=== PATIENT | male | born 1965 | race African-American/Black ===

== ENCOUNTER 2017-10-09 12:51 | Inpatient (IN) | payer OTHER ==
[2017-10-09 13:52] VITALS: BMI 34.1
--- NOTE | 2017-10-09 15:18 | HP ---
COWS - Scale Resting Pulse: 0= [place] 80 or Below Sweatin= Chills/Flushing Restless Observation: 1= Difficult to Sit Still Pupil Size: 1= Pupils >than Normal Bone or Joint Aches: 2= Severe Diffuse Aches Runny Nose/ Eye Tearin= Nasal Congestion GI Upset > 30mins: 1= Stomach Cramp Tremor Observation: 1= Tremor [place], Not Seen Yawning Observation: 0= None Anxiety or Irritability: 1=Feels Anxious/Irritable Goose Flesh Skin: 0=Smooth Skin COWS Score: 9 CIWA Score - CIWA Score Nausea/Vomitin Muscle Tremors: 2 Anxiety: 2 Agitation: 2 Paroxysmal Sweats: 2 Orientation: 0-Oriented Tacttile Disturbances: 1-Very Mild Itch/Numbness Auditory Disturbances: 0-None Visual Disturbances: 0-None Headache: 0-None Present CIWA-Ar Total Score: 11 Admission ROS BHS - HPI Chief Complaint: I need to clean up and get on track - I also realize i need rehab. Allergies/Adverse Reactions: Allergies Allergy/AdvReac Type Severity Reaction Status Date / Time No Known Allergies Allergy Verified 10/09/17 15:43 History of Present Illness: 52 y/o m pt with h/o of polysubstance dep, heroin , crack and alcohol . The pt has h/o multiple tx programs , detoxes attended. He had 4 weeks of drug free time then he relapsed last saturday10/04/17. ow pt seeking detox and rehab . - Ebola screening Have you traveled outside of the country in the last 21 days: No Have you had contact with anyone from an Ebola affected area: No Have you been sick,other than usual withdrawal symptoms: No Do you have a fever: No - Review of Systems Constitutional: Malaise, Weakness EENT: reports: Other (wears corrective lenses -has them on) Respiratory: reports: No Symptoms reported Cardiac: reports: No Symptoms Reported GI: reports: Nausea, Abdominal cramping : reports: No Symptoms Reported Musculoskeletal: reports: Back Pain, Joint Pain, Muscle Pain Integumentary: reports: No Symptoms Reported Neuro: reports: Weakness Endocrine: reports: No Symptoms Reported Hematology: reports: No Symptoms Reported Psychiatric: reports: No Sypmtoms Reported Other Systems: Reviewed and Negative Patient History - Patient Medical History Hx Anemia: No Hx Asthma: No Hx Chronic Obstructive Pulmonary Disease (COPD): No Hx Cancer: No Hx Cardiac Disorders: No Hx Congestive Heart Failure: No Hx Hypertension: No Hx Hypercholesterolemia: Yes Hx Pacemaker: No HX Cerebrovascular Accident: Yes Hx Seizures: No Hx Dementia: No Hx Diabetes: No Hx Gastrointestinal Disorders: No Hx Liver Disease: Yes Hx Genitourinary Disorders: No Hx Sexually Transmitted Disorders: No Hx Renal Disease (ESRD): No Hx Thyroid Disease: No Hx Human Immunodeficiency Virus (HIV): Yes Hx Hepatitis C: No Hx Depression: No Hx Suicide Attempt: No Hx Bipolar Disorder: No Hx Schizophrenia: No - Patient Surgical History Past Surgical History: No - PPD History Previous Implant?: Yes Documented Results: Negative w/o proof PPD to be Administered?: Yes - Reproductive History Patient is a Female of Child Bearing Age (11 -55 yrs old): No - Smoking Cessation Smoking history: Current every day smoker Have you smoked in the past 12 months: Yes Aproximately how many cigarettes per day: 10 Cigars Per Day: 0 Hx Chewing Tobacco Use: No Initiated information on smoking cessation: Yes 'Breaking Loose' booklet given: 10/09/17 - Substance & Tx. History Hx Alcohol Use: Yes Hx Substance Use: Yes Substance Use Type: Alcohol, Cocaine, Heroin Hx Substance Use Treatment: Yes ([facility], [facility] -detoxes) - Substances Abused Alcohol Route: Oral Frequency: Daily Amount used: beer 2- 12oz cans Age of first use: 15 Date of Last Use: 10/08/17 Heroin Route: Inhalation Frequency: Daily Amount used: 4 bags Age of first use: 29 Date of Last Use: 10/09/17 Crack Route: Smoking Frequency: Daily Amount used: $125./day Age of first use: 23 Date of Last Use: 10/09/17 Family Disease History - Family Disease History Family Disease History: Other: Mother (arthritis) Admission Physical Exam BHS - Vital Signs Vital Signs: Vital Signs - 24 hr 10/09/17 13:50 Temperature 98.1 F Pulse Rate 77 Respiratory 16 Rate Blood Pressure 114/70 Pt aox3 , in nad but uneasy , ambulating and cooperative with exam. - Physical General Appearance: Yes: Sweating (moist), Anxious HEENTM: Yes: EOMI, Hearing grossly Normal, Normocephalic, Normal Voice, WENDI Respiratory: Yes: Chest Non-Tender, Lungs Clear, Normal Breath Sounds, No Respiratory Distress Neck: Yes: No masses,lesions,Nodules, Supple, Trachea in good position Breast: Yes: Within Normal Limits Cardiology: Yes: Regular Rhythm, Regular Rate, S1, S2 Abdominal: Yes: Non Tender, Soft, Protuberent, Other (no surgical scars) Genitourinary: Yes: Within Normal Limits Back: Yes: Decreased Range of Motion Musculoskeletal: Yes: Back pain, Muscle weakness Extremities: Yes: Tremors (mild) Neurological: Yes: 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 intact, Fully Oriented, Alert, Motor Strength 5/5, Normal Response, Finger to Nose Integumentary: Yes: Moist Lymphatic: Yes: Within Normal Limits - Diagnostic (1) Chronic alcoholism Current Visit: Yes Status: Acute (2) Cocaine abuse Current Visit: Yes Status: Acute (3) Opioid dependence with current use Current Visit: Yes Status: Acute (4) Cannabis abuse Current Visit: Yes Status: Acute Cleared for Admission [facility] - Detox or Rehab [facility] Level of Care: Medically Managed Detox Regimen/Protocol: Methadone/Valium [facility] Breath Alcohol Content Breath Alcohol Content: 0 Urine Drug Screen - Results Drug Screen Negative: No Urine Drug Screen Results: THC-Marijuana, OCTAVIA-Cocaine, OPI-Opiates
[2017-10-09] MEDS ORDERED: P-EPHED 60MG/TRIPROLIDI 2.5MG TABLET PO PRN (15:48)
[2017-10-09] MEDS ORDERED: IBUPROFEN 400 MG TABLET (FP) PO PRN (15:48)
[2017-10-09] MEDS ORDERED: MAGNESIUM CITRATE 300 ML BOTTLE PO PRN (15:48)
[2017-10-09] MEDS ORDERED: LOPERAMIDE HCL 2 MG CAPSULE PO PRN (15:48)
[2017-10-09] MEDS ORDERED: MENTHOL/PHENOL 1 EACH UD MM PRN (15:48)
[2017-10-09] MEDS ORDERED: ACETAMINOPHEN 325 MG TABLET (FP) PO PRN (15:48)
[2017-10-09] MEDS ORDERED: guaiFENesin/D-METHORPHAN HB 10 ML UNIT-DOSE CUPS PO PRN (15:48)
[2017-10-09] MEDS ORDERED: hydrOXYzine PAMOATE 25 MG CAPSULE (FP) PO PRN (15:48)
[2017-10-09] MEDS ORDERED: MAGNESIUM HYDROX 2400MG/30ML ORAL SUSPENSION 30 ML CUP PO PRN (15:48)
[2017-10-09] MEDS ORDERED: diazePAM 5 MG TABLET PO PRN (15:48)
[2017-10-09] MEDS ORDERED: NICOTINE POLACRILEX 4 MG GUM BC PRN (15:48)
[2017-10-09] MEDS ORDERED: MAG HYDROX/AL HYDROX/SIMETH 30 ML UNIT-DOSE CUP PO PRN (15:48)
[2017-10-09] MEDS ORDERED: diazePAM 5 MG TABLET PO ONE (17:30)
[2017-10-09] MEDS ORDERED: METHADONE HCL 10 MG TABLET (FOR DETOX USE ONLY) PO ONE ×2 (17:30→23:00)
[2017-10-09] MEDS: THIAMINE HCL 100 MG TABLET (FP) PO SCH (22:16)
[2017-10-09] MEDS: diazePAM 5 MG TABLET PO SCH (22:17)
[2017-10-09 23:31] LABS: URINE APPEARANCE TURBID; URINE BILIRUBIN NEGATIVE (<2.0 mg/dL); URINE COLOR YELLOW; URINE GLUCOSE (UA) NEGATIVE (NEGATIVE); URINE KETONE TRACE (NEGATIVE); URINE LEUK ESTERASE NEGATIVE (NEGATIVE); URINE NITRITE NEGATIVE (NEGATIVE); URINE PROTEIN NEGATIVE (NEGATIVE); URINE UROBILINOGEN 4.0 E.U/dl mg/dL (0.2-1.0)
[2017-10-10] MEDS: diazePAM 5 MG TABLET PO SCH ×3 (05:30→22:28)
[2017-10-10 09:52] LABS: HEMOGLOBIN 13.4 GM/dL (11.7-16.9); RDW 14.3 % (11.9-15.9)
[2017-10-10 09:55] LABS: HEMATOCRIT 39.8 % (35.4-49); MCHC 33.8 g/dl (32.0-35.9); MEAN CELL VOLUME 91.7 fl (80-96); MEAN PLT VOLUME 8.6 fl (7.5-11.1); PLATELET COUNT 172 K/MM3 (134-434); RBC 4.34 M/mm3 (4.00-5.60)
[2017-10-10] MEDS ORDERED: METHADONE HCL 10 MG TABLET (FOR DETOX USE ONLY) PO SCH (10:00)
--- NOTE | 2017-10-10 10:02 | PN ---
S CIWA - CIWA Score Nausea/Vomitin-No Nausea/No Vomiting Muscle Tremors: 4-Moderate,w/Arms Extend Anxiety: 4-Mod. Anxious/Guarded Agitation: 4-Moderately Restless Paroxysmal Sweats: 1-Minimal Palms Moist Orientation: 0-Oriented Tacttile Disturbances: 0-None Auditory Disturbances: 0-None Visual Disturbances: 0-None Headache: 0-None Present CIWA-Ar Total Score: 13 BHS COWS - Scale Resting Pulse: 0= [place] 80 or Below Sweatin= Chills/Flushing Restless Observation: 3= Extraneous Movement Pupil Size: 2= Moderately Dilated Bone or Joint Aches: 4=Acute Joint/Muscle Pain Runny Nose/ Eye Tearin= None GI Upset > 30mins: 0= None Tremor Observation of Outstretched Hands: 1= Tremor [place], Not Seen Yawning Observation: 1= 1-2x During Session Anxiety or Irritability: 2=Irritable/Anxious Goose Flesh Skin: 0=Smooth Skin COWS Score: 14 S Progress Note (SOAP) Subjective: ANXIETY,SWEATS,BODY ACHES. Objective: 10/10/17 10:01 Vital Signs 10/10/17 10/10/17 10/10/17 03:30 06:19 06:30 Temperature 98.2 F Pulse Rate 75 Respiratory 20 18 20 Rate Blood Pressure 101/65 Laboratory Tests 10/09/17 10/10/17 23:15 07:00 WBC 6.0 RBC 4.34 Hgb 13.4 Hct 39.8 MCV 91.7 MCH 31.0 MCHC 33.8 RDW 14.3 Plt Count 172 MPV 8.6 Urine Color Yellow Urine Appearance Turbid Urine pH 5.0 Ur Specific [place] 1.029 Urine Protein Negative Urine Glucose (UA) Negative Urine Ketones Trace H Urine Blood Negative Urine Nitrite Negative Urine Bilirubin Negative Urine Urobilinogen 4.0 e.u/dl Ur Leukocyte Esterase Negative OTHER LABS PENDING Assessment: 10/10/17 10:01 WITHDRAWAL SX Plan: CONTINUE DETOX MOTRIN PRN INCREASE PO FLUIDS
[2017-10-10] MEDS: PRENATAL VITAMINS W/ FOLIC ACID TABLET (FP) PO SCH (10:08)
[2017-10-10] MEDS: NICOTINE 21 MG/24 HOURS TOPICAL PATCH TD SCH (10:08)
[2017-10-10 10:42] LABS: ALBUMIN 3.2 g/dl (3.4-5.0); ANION GAP 5 (8-16); BILIRUBIN,TOTAL 0.2 mg/dL (0.2-1.0); BLOOD UREA NITROGEN 13 mg/dL (7-18); CALCIUM 8.6 mg/dL (8.5-10.1); CHLORIDE 109 mmol/L (98-107); CO2 32 mmol/L (21-32); CREATININE 1.2 mg/dL (0.7-1.3); GLUCOSE,RANDOM 84 mg/dL (74-106); POTASSIUM 4.9 mmol/L (3.5-5.1); SGOT/AST 13 U/L (15-37); SGPT/ALT 15 U/L (12-78); SODIUM 146 mmol/L (136-145); TOT PROT 6.1 g/dl (6.4-8.2)
[2017-10-10 10:43] LABS: ALK PHOS 52 U/L (45-117)
--- NOTE | 2017-10-10 12:01 | EKG ---
Test Reason : Blood Pressure : / mmHG Vent. Rate : 064 BPM Atrial Rate : 064 BPM P-R Int : 184 ms QRS Dur : 104 ms QT Int : 400 ms P-R-T Axes : 057 018 025 degrees QTc Int : 412 ms NORMAL SINUS RHYTHM LOW VOLTAGE QRS BORDERLINE ECG NO PREVIOUS ECGS AVAILABLE Confirmed by ERIC LAUREN MD ([id number]) on 10/10/2017 12:01:04 PM Referred By: Confirmed By:ERIC LAUREN MD
[2017-10-10] MEDS: THIAMINE HCL 100 MG TABLET (FP) PO SCH (22:28)
[2017-10-11] MEDS: METHADONE HCL 5 MG TABLET (FOR DETOX USE ONLY) PO SCH (10:07)
[2017-10-11] MEDS: diazePAM 5 MG TABLET PO SCH ×2 (10:07→22:22)
[2017-10-11] MEDS: PRENATAL VITAMINS W/ FOLIC ACID TABLET (FP) PO SCH (10:07)
[2017-10-11] MEDS: NICOTINE 21 MG/24 HOURS TOPICAL PATCH TD SCH (10:08)
--- NOTE | 2017-10-11 17:00 | PN ---
[facility] CIWA - CIWA Score Nausea/Vomitin-No Nausea/No Vomiting Muscle Tremors: 3 Anxiety: 4-Mod. Anxious/Guarded Agitation: 3 Paroxysmal Sweats: 3 Orientation: 0-Oriented Tacttile Disturbances: 2-Mild Itch/Numbness/Burn Auditory Disturbances: 1-Very Mild Visual Disturbances: 0-None Headache: 0-None Present CIWA-Ar Total Score: 16 S COWS - Scale Resting Pulse: 0= [place] 80 or Below Sweatin= Chills/Flushing Restless Observation: 1= Difficult to Sit Still Pupil Size: 0= Normal to Room Light Bone or Joint Aches: 0= None Runny Nose/ Eye Tearin= Runny Nose/Eyes GI Upset > 30mins: 0= None Tremor Observation of Outstretched Hands: 2= Slight Tremor Visible Yawning Observation: 1= 1-2x During Session Anxiety or Irritability: 2=Irritable/Anxious Goose Flesh Skin: 3=Piloerection COWS Score: 12 S Progress Note (SOAP) Subjective: Tremors, Sweating, Anxious, Constipation. Objective: PATIENT A & O X 3, OBSERVED AMBULATING ON UNIT. NO ACUTE DISTRESS. 10/11/17 17:00 Vital Signs Temperature 97.5 F L 10/11/17 14:05 Pulse Rate 75 10/11/17 14:05 Respiratory Rate 18 10/11/17 14:05 Blood Pressure 103/64 10/11/17 14:05 O2 Sat by Pulse Oximetry (%) Laboratory Tests 10/09/17 10/10/17 10/10/17 23:15 07:00 07:00 WBC 6.0 RBC 4.34 Hgb 13.4 Hct 39.8 MCV 91.7 MCH 31.0 MCHC 33.8 RDW 14.3 Plt Count 172 MPV 8.6 Sodium 146 H Potassium 4.9 Chloride 109 H Carbon Dioxide 32 Anion Gap 5 L BUN 13 Creatinine 1.2 Creat Clearance w eGFR > 60 Random Glucose 84 Calcium 8.6 Total Bilirubin 0.2 AST 13 L ALT 15 Alkaline Phosphatase 52 Total Protein 6.1 L Albumin 3.2 L Urine Color Yellow Urine Appearance Turbid Urine pH 5.0 Ur Specific [place] 1.029 Urine Protein Negative Urine Glucose (UA) Negative Urine Ketones Trace H Urine Blood Negative Urine Nitrite Negative Urine Bilirubin Negative Urine Urobilinogen 4.0 e.u/dl Ur Leukocyte Esterase Negative RPR Titer 10/10/17 07:00 WBC RBC Hgb Hct MCV MCH MCHC RDW Plt Count MPV Sodium Potassium Chloride Carbon Dioxide Anion Gap BUN Creatinine Creat Clearance w eGFR Random Glucose Calcium Total Bilirubin AST ALT Alkaline Phosphatase Total Protein Albumin Urine Color Urine Appearance Urine pH Ur Specific [place] Urine Protein Urine Glucose (UA) Urine Ketones Urine Blood Urine Nitrite Urine Bilirubin Urine Urobilinogen Ur Leukocyte Esterase RPR Titer Nonreactive LABS NOTED. Assessment: 10/11/17 17:01 WITHDRAWAL SYMPTOMS. Plan: CONTINUE DETOX. INCREASE DAILY PO FLUID INTAKE. PRN MOM FOR CONSTIPATION.
[2017-10-11] MEDS: MELATONIN 5 MG TABLETS PO PRN (22:22)
[2017-10-11] MEDS: THIAMINE HCL 100 MG TABLET (FP) PO SCH (22:22)
[2017-10-12] MEDS: PRENATAL VITAMINS W/ FOLIC ACID TABLET (FP) PO SCH (10:10)
[2017-10-12] MEDS: NICOTINE 21 MG/24 HOURS TOPICAL PATCH TD SCH (10:10)
[2017-10-12] MEDS: METHADONE HCL 5 MG TABLET (FOR DETOX USE ONLY) PO SCH (10:10)
[2017-10-12] MEDS: diazePAM 5 MG TABLET PO SCH ×2 (10:10→22:07)
--- NOTE | 2017-10-12 16:33 | PN ---
BHS Progress Note (SOAP) Subjective: Fatigue, H/A, Constipation. Objective: PATIENT A & O X 3, OBSERVED AMBULATING ON UNIT. NO ACUTE DISTRESS. 10/12/17 16:32 Vital Signs Temperature 98.5 F 10/12/17 14:20 Pulse Rate 70 10/12/17 14:20 Respiratory Rate 18 10/12/17 14:20 Blood Pressure 107/67 10/12/17 14:20 O2 Sat by Pulse Oximetry (%) Laboratory Tests 10/09/17 10/10/17 10/10/17 23:15 07:00 07:00 WBC 6.0 RBC 4.34 Hgb 13.4 Hct 39.8 MCV 91.7 MCH 31.0 MCHC 33.8 RDW 14.3 Plt Count 172 MPV 8.6 Sodium 146 H Potassium 4.9 Chloride 109 H Carbon Dioxide 32 Anion Gap 5 L BUN 13 Creatinine 1.2 Creat Clearance w eGFR > 60 Random Glucose 84 Calcium 8.6 Total Bilirubin 0.2 AST 13 L ALT 15 Alkaline Phosphatase 52 Total Protein 6.1 L Albumin 3.2 L Urine Color Yellow Urine Appearance Turbid Urine pH 5.0 Ur Specific [place] 1.029 Urine Protein Negative Urine Glucose (UA) Negative Urine Ketones Trace H Urine Blood Negative Urine Nitrite Negative Urine Bilirubin Negative Urine Urobilinogen 4.0 e.u/dl Ur Leukocyte Esterase Negative RPR Titer 10/10/17 07:00 WBC RBC Hgb Hct MCV MCH MCHC RDW Plt Count MPV Sodium Potassium Chloride Carbon Dioxide Anion Gap BUN Creatinine Creat Clearance w eGFR Random Glucose Calcium Total Bilirubin AST ALT Alkaline Phosphatase Total Protein Albumin Urine Color Urine Appearance Urine pH Ur Specific [place] Urine Protein Urine Glucose (UA) Urine Ketones Urine Blood Urine Nitrite Urine Bilirubin Urine Urobilinogen Ur Leukocyte Esterase RPR Titer Nonreactive LABS NOTED. Assessment: 10/12/17 16:32 WITHDRAWAL SYMPTOMS. Plan: CONTINUE DETOX.
[2017-10-12] MEDS: THIAMINE HCL 100 MG TABLET (FP) PO SCH (22:07)
[2017-10-12] MEDS: MELATONIN 5 MG TABLETS PO PRN (22:07)
[2017-10-13] MEDS ORDERED: METHADONE HCL 10 MG TABLET (FOR DETOX USE ONLY) PO SCH (10:00)
[2017-10-13] MEDS ORDERED: diazePAM 5 MG TABLET PO SCH (10:00)
[2017-10-13] MEDS: PRENATAL VITAMINS W/ FOLIC ACID TABLET (FP) PO SCH (10:08)
[2017-10-13] MEDS: NICOTINE 21 MG/24 HOURS TOPICAL PATCH TD SCH (10:09)
--- NOTE | 2017-10-13 12:37 | PN ---
BHS Progress Note (SOAP) Subjective: ALERT O X 3. REPORTS DETOX PROCEEDING WELL. Objective: 10/13/17 12:36 Vital Signs 10/13/17 10/13/17 06:13 09:30 Temperature 98.4 F 98.1 F Pulse Rate 70 68 Respiratory 18 18 Rate Blood Pressure 105/65 101/66 Laboratory Tests 10/09/17 10/10/17 10/10/17 23:15 07:00 07:00 WBC 6.0 RBC 4.34 Hgb 13.4 Hct 39.8 MCV 91.7 MCH 31.0 MCHC 33.8 RDW 14.3 Plt Count 172 MPV 8.6 Sodium 146 H Potassium 4.9 Chloride 109 H Carbon Dioxide 32 Anion Gap 5 L BUN 13 Creatinine 1.2 Creat Clearance w eGFR > 60 Random Glucose 84 Calcium 8.6 Total Bilirubin 0.2 AST 13 L ALT 15 Alkaline Phosphatase 52 Total Protein 6.1 L Albumin 3.2 L Urine Color Yellow Urine Appearance Turbid Urine pH 5.0 Ur Specific [place] 1.029 Urine Protein Negative Urine Glucose (UA) Negative Urine Ketones Trace H Urine Blood Negative Urine Nitrite Negative Urine Bilirubin Negative Urine Urobilinogen 4.0 e.u/dl Ur Leukocyte Esterase Negative RPR Titer 10/10/17 07:00 WBC RBC Hgb Hct MCV MCH MCHC RDW Plt Count MPV Sodium Potassium Chloride Carbon Dioxide Anion Gap BUN Creatinine Creat Clearance w eGFR Random Glucose Calcium Total Bilirubin AST ALT Alkaline Phosphatase Total Protein Albumin Urine Color Urine Appearance Urine pH Ur Specific [place] Urine Protein Urine Glucose (UA) Urine Ketones Urine Blood Urine Nitrite Urine Bilirubin Urine Urobilinogen Ur Leukocyte Esterase RPR Titer Nonreactive Assessment: 10/13/17 12:36 WITHDRAWAL SX Plan: CONTINUE DETOX
[2017-10-13] MEDS: THIAMINE HCL 100 MG TABLET (FP) PO SCH (22:12)
[2017-10-13] MEDS: MELATONIN 5 MG TABLETS PO PRN (22:13)
[2017-10-14] MEDS ORDERED: METHADONE HCL 5 MG TABLET (FOR DETOX USE ONLY) PO SCH (06:00)
[2017-10-14] MEDS: PRENATAL VITAMINS W/ FOLIC ACID TABLET (FP) PO SCH (10:08)
[2017-10-14] MEDS: NICOTINE 21 MG/24 HOURS TOPICAL PATCH TD SCH (10:08)
--- NOTE | 2017-10-14 11:13 | PN ---
S Progress Note (SOAP) Subjective: Denies any complaints Objective: 10/14/17 11:12 A & O x 3 no acute distress Vital Signs Temperature 98.5 F 10/14/17 09:19 Pulse Rate 72 10/14/17 09:19 Respiratory Rate 16 10/14/17 09:19 Blood Pressure 118/72 10/14/17 09:19 O2 Sat by Pulse Oximetry (%) Assessment: 10/14/17 11:12 Detox successfully completed Plan: For discharge
--- NOTE | 2017-10-14 11:19 | DS ---
[facility] Detox Discharge Summary Admission Date: 10/09/17 Discharge Date: 10/14/17 - History Additional Comments: Pt will continue aftercare at [facility] rehab Pertinent Past History: N/a - Physical Exam Results Vital Signs: Vital Signs Temperature 98.5 F 10/14/17 09:19 Pulse Rate 72 10/14/17 09:19 Respiratory Rate 16 10/14/17 09:19 Blood Pressure 118/72 10/14/17 09:19 O2 Sat by Pulse Oximetry (%) Pertinent Admission Physical Exam Findings: withdrawal sx - Treatment Hospital Course: Detox Protocol Followed, Detoxed Safely, Responded well, Discharged Condition Good, Rehab Referral Accepted Patient has Accepted a Rehab Referral to: [facility] rehab - Medication Discharge Medications: Ambulatory Orders NK [No Known Home Medication] 10/09/17 - Diagnosis (1) Alcohol dependence with uncomplicated withdrawal Current Visit: Yes Status: Acute (2) Cannabis abuse Current Visit: Yes Status: Chronic (3) Cocaine abuse Current Visit: Yes Status: Acute (4) Cocaine dependence, uncomplicated Current Visit: Yes Status: Acute (5) Opioid dependence with withdrawal Current Visit: Yes Status: Acute - AMA Did Patient Leave Against Medical Advice: No
[2017-10-14 13:02] VITALS: BP 82/56; PULSE 71; TEMP 97.6
== END 2017-10-14 14:33 | disposition other institution (70) | DRG 773 ==
LOC: YASAS 12:51 → Y3N 16:47
PROVIDERS: ADMIT Family Medicine Addiction Medicine; ATTEND Family Medicine Addiction Medicine
PROC: HZ2ZZZZ Detoxification Services for Substance Abuse Treatment (ICD-10-PCS; principal; 2017-10-09)
DX: F11.23 Opioid dependence with withdrawal (principal); F10.20 Alcohol dependence, uncomplicated; F10.230 Alcohol dependence with withdrawal, uncomplicated; F14.20 Cocaine dependence, uncomplicated; F12.10 Cannabis abuse, uncomplicated; Z21 Asymptomatic human immunodeficiency virus [HIV] infection status; Z86.73 Personal history of transient ischemic attack (TIA), and cerebral infarction without residual deficits; K76.9 Liver disease, unspecified
CPT/HCPCS: 36415; 80053; 81003; 85027; 86593; 93005; 93010

== ENCOUNTER 2018-02-22 16:57 | Inpatient (IN) | payer OTHER ==
[2018-02-22 18:39] VITALS: BMI 35.4
--- NOTE | 2018-02-22 20:22 | HP ---
COWS - Scale Resting Pulse: 0= [place] 80 or Below Sweatin= Chills/Flushing Restless Observation: 0= Sits Still Pupil Size: 0= Normal to Room Light Bone or Joint Aches: 4=Acute Joint/Muscle Pain Runny Nose/ Eye Tearin= None GI Upset > 30mins: 0= None Tremor Observation: 2= Slight Tremor Visible Yawning Observation: 0= None Anxiety or Irritability: 2=Irritable/Anxious Goose Flesh Skin: 0=Smooth Skin COWS Score: 9 CIWA Score - CIWA Score Nausea/Vomitin-No Nausea/No Vomiting Muscle Tremors: 3 Anxiety: 0-No Anxiety, at Ease Agitation: 0-Normal Activity Paroxysmal Sweats: No Perspiration Orientation: 0-Oriented Tacttile Disturbances: 0-None Auditory Disturbances: 2-Mild Harshness/Frighten Visual Disturbances: 2-Mild Sensitivity Headache: 3-Moderate CIWA-Ar Total Score: 10 Admission [facility] - HPI Chief Complaint: seeking detox for alcohol and heroin dependence and c/o withdrawal sx's Allergies/Adverse Reactions: Allergies Allergy/AdvReac Type Severity Reaction Status Date / Time No Known Allergies Allergy Verified 02/22/18 18:31 History of Present Illness: 52 Y.O. MALE WITH HX/O ALCHOLISM, HEROIN AND COCAINE DEPENDENCE HERE FOR DETOX. CLIENT IS KNOWN TO THIS PROGRAM. HE IS SELF REFERRED. C/O RECENT ONSET OF WITHDRAWAL SX'S COWS 7/ CIWA 10. STATES HIS LAST DRINK WAS LAST NIGHT. HE DRINKS DAILY 4- 24 OZ CANS OF BEER AND SNIFFING 4 BAGS OF HEROIN. REPORTS LONGEST CLEAN TIME 1 YEAR. REPORTS HX/O OF DRUG OVERDOSE BUT DENIES SEIZURES, BLACK OUTS, SI/HI, AVH AND DT. HE REPORTS HE IS HOMELESS A WELL PMHX- DENIES PSYCH- DENIES Exam Limitations: No Limitations - Ebola screening Have you traveled outside of the country in the last 21 days: No Have you had contact with anyone from an Ebola affected area: No Have you been sick,other than usual withdrawal symptoms: No Do you have a fever: No - Review of Systems Constitutional: Malaise EENT: reports: No Symptoms Reported Respiratory: reports: No Symptoms reported Cardiac: reports: No Symptoms Reported GI: reports: Poor Fluid Intake : reports: No Symptoms Reported Musculoskeletal: reports: Back Pain, Joint Pain, Muscle Pain, Neck Pain Integumentary: reports: No Symptoms Reported Neuro: reports: Headache Endocrine: reports: No Symptoms Reported Hematology: reports: No Symptoms Reported Psychiatric: reports: other (IRRITABLE) Other Systems: Reviewed and Negative Patient History - Patient Medical History Hx Anemia: No Hx Asthma: No Hx Chronic Obstructive Pulmonary Disease (COPD): No Hx Cancer: No Hx Cardiac Disorders: No Hx Congestive Heart Failure: No Hx Hypertension: No Hx Hypercholesterolemia: No Hx Pacemaker: No HX Cerebrovascular Accident: No Hx Seizures: No Hx Dementia: No Hx Diabetes: No Hx Gastrointestinal Disorders: No Hx Liver Disease: No Hx Genitourinary Disorders: No Hx Sexually Transmitted Disorders: No Hx Renal Disease (ESRD): No Hx Thyroid Disease: No Hx Human Immunodeficiency Virus (HIV): No Hx Hepatitis C: No Hx Depression: No Hx Suicide Attempt: No Hx Bipolar Disorder: No Hx Schizophrenia: No Other Medical History: DENIES - Patient Surgical History Past Surgical History: No Hx Neurologic Surgery: No Hx Cataract Extraction: No Hx Cardiac Surgery: No Hx Lung Surgery: No Hx Breast Surgery: No Hx Breast Biopsy: No Hx Abdominal Surgery: No Hx Appendectomy: No Hx Cholecystectomy: No Hx Genitourinary Surgery: No Hx Orthopedic Surgery: No Anesthesia Reaction: No - PPD History Previous Implant?: Yes Documented Results: Negative w/proof Implanted On Prior [facility] Admission?: Yes Date: 10/11/17 Results: 0 mm PPD to be Administered?: No - Smoking Cessation Smoking history: Current every day smoker Have you smoked in the past 12 months: Yes Aproximately how many cigarettes per day: 10 Cigars Per Day: 0 Hx Chewing Tobacco Use: No Initiated information on smoking cessation: Yes 'Breaking Loose' booklet given: 02/22/18 - Substance & Tx. History Hx Alcohol Use: Yes Hx Substance Use: Yes Substance Use Type: Alcohol, Cocaine, Heroin Hx Substance Use Treatment: Yes ([facility]) - Substances Abused Heroin Route: Inhalation Frequency: Daily Amount used: $40 Age of first use: 29 Date of Last Use: 02/22/18 Crack Route: Smoking Frequency: Daily Amount used: $100 Age of first use: 23 Date of Last Use: 02/22/18 Alcohol Route: Oral Frequency: Daily Amount used: 2-4 24oz cans Age of first use: 29 Date of Last Use: 02/21/18 Family Disease History - Family Disease History Family Disease History: Other: Mother (arthritis) Admission Physical Exam [facility] - Vital Signs Vital Signs: Vital Signs - 24 hr 02/22/18 18:24 Temperature 98.6 F Pulse Rate 72 Respiratory 18 Rate Blood Pressure 135/72 - Physical General Appearance: Yes: Appropriately Dressed, Disheveled, Obese, Tremorous, Irritable HEENTM: Yes: EOMI, Normocephalic, WENDI, Pharynx Normal, Other (CORRECTIVE LENSES ) Respiratory: Yes: Chest Non-Tender, Lungs Clear, Normal Breath Sounds, No Respiratory Distress, No Accessory Muscle Use Neck: Yes: No masses,lesions,Nodules, Supple, Trachea in good position Breast: Yes: Breast Exam Deferred Cardiology: Yes: Regular Rhythm, Regular Rate, S1, S2 Abdominal: Yes: Non Tender, Soft, Protuberent Genitourinary: Yes: Other (NO C/O) Back: Yes: Normal Inspection Musculoskeletal: Yes: full range of Motion, Gait Steady Extremities: Yes: Normal Range of Motion, Non-Tender, Tremors, Other (DIRTY FINGER NAILS) Neurological: Yes: Fully Oriented, Alert, Motor Strength 5/5, Depressed Affect Integumentary: Yes: Dry, Warm Lymphatic: Yes: Within Normal Limits - Diagnostic (1) Alcohol dependence with uncomplicated withdrawal Current Visit: Yes Status: Acute (2) Cocaine dependence, uncomplicated Current Visit: Yes Status: Chronic (3) Opioid dependence with withdrawal Current Visit: Yes Status: Acute (4) Nicotine dependence Current Visit: Yes Status: Chronic Qualifiers: Nicotine product type: cigarettes Substance use status: uncomplicated Qualified Code(s): F17.210 - Nicotine dependence, cigarettes, uncomplicated Cleared for Admission [facility] - Detox or Rehab [facility] Level of Care: Medically Managed Detox Regimen/Protocol: Methadone/Librium Claeared for Rehab Admission: No [facility] Breath Alcohol Content Breath Alcohol Content: 0 Urine Drug Screen - Results Drug Screen Negative: No Urine Drug Screen Results: OCTAVIA-Cocaine, OPI-Opiates, FEN-Fentanyl
[2018-02-22] MEDS ORDERED: LOPERAMIDE HCL 2 MG CAPSULE PO PRN (20:34)
[2018-02-22] MEDS ORDERED: MAG HYDROX/AL HYDROX/SIMETH 30 ML UNIT-DOSE CUP PO PRN (20:34)
[2018-02-22] MEDS ORDERED: ACETAMINOPHEN 325 MG TABLET (FP) PO PRN (20:34)
[2018-02-22] MEDS ORDERED: NICOTINE POLACRILEX 2 MG GUM BC PRN (20:34)
[2018-02-22] MEDS ORDERED: chlordiazePOXIDE HCL 25 MG CAPSULE PO PRN (20:34)
[2018-02-22] MEDS ORDERED: MAGNESIUM CITRATE 300 ML BOTTLE PO PRN (20:34)
[2018-02-22] MEDS ORDERED: guaiFENesin/D-METHORPHAN HB 10 ML UNIT-DOSE CUPS PO PRN (20:34)
[2018-02-22] MEDS ORDERED: IBUPROFEN 400 MG TABLET (FP) PO PRN (20:34)
[2018-02-22] MEDS ORDERED: METHADONE HCL 10 MG TABLET (FOR DETOX USE ONLY) PO ONE ×2 (20:34→23:00)
[2018-02-22] MEDS ORDERED: MAGNESIUM HYDROX 2400MG/30ML ORAL SUSPENSION 30 ML CUP PO PRN (20:34)
[2018-02-22] MEDS ORDERED: hydrOXYzine PAMOATE 50 MG CAPSULE (FP) PO PRN (20:34)
[2018-02-22] MEDS ORDERED: P-EPHED 60MG/TRIPROLIDI 2.5MG TABLET PO PRN (20:34)
[2018-02-22] MEDS ORDERED: MELATONIN 5 MG TABLETS PO PRN (22:00)
[2018-02-22] MEDS: chlordiazePOXIDE HCL 25 MG CAPSULE PO SCH (22:56)
[2018-02-22] MEDS: THIAMINE HCL 100 MG TABLET (FP) PO SCH (22:56)
[2018-02-23] MEDS: chlordiazePOXIDE HCL 25 MG CAPSULE PO SCH ×4 (05:45→22:20)
[2018-02-23] MEDS ORDERED: METHADONE HCL 10 MG TABLET (FOR DETOX USE ONLY) PO SCH (10:00)
[2018-02-23] MEDS: NICOTINE 21 MG/24 HOURS TOPICAL PATCH TD SCH (10:28)
[2018-02-23] MEDS: PRENATAL VITAMINS W/ FOLIC ACID TABLET (FP) PO SCH (10:28)
[2018-02-23] MEDS: MENTHOL/PHENOL 1 EACH UD MM PRN ×2 (10:30→17:38)
[2018-02-23 10:38] LABS: HEMATOCRIT 38.6 % (35.4-49); HEMOGLOBIN 13.6 GM/dL (11.7-16.9); MCH 32.9 pg (25.7-33.7); MCHC 35.3 g/dl (32.0-35.9); MEAN CELL VOLUME 93.1 fl (80-96); MEAN PLT VOLUME 9.3 fl (7.5-11.1); PLATELET COUNT 156 K/MM3 (134-434); RBC 4.14 M/mm3 (4.00-5.60); RDW 13.3 % (11.9-15.9); WHITE BLOOD COUNT 5.7 K/mm3 (4.0-10.0)
[2018-02-23 10:50] LABS: ALK PHOS 58 U/L (45-117); ANION GAP 7 MMOL/L (8-16); BILIRUBIN,TOTAL 0.3 mg/dL (0.2-1); BLOOD UREA NITROGEN 12 mg/dL (7-18); CALCIUM 7.9 mg/dL (8.5-10.1); CHLORIDE 104 mmol/L (98-107); CO2 29 mmol/L (21-32); CREATININE 1.2 mg/dL (0.55-1.3); GLUCOSE,RANDOM 106 mg/dL (74-106); POTASSIUM 4.1 mmol/L (3.5-5.1); SGOT/AST 13 U/L (15-37); SGPT/ALT 14 U/L (13-61); SODIUM 141 mmol/L (136-145); TOT PROT 5.9 g/dl (6.4-8.2)
--- NOTE | 2018-02-23 11:35 | EKG ---
Test Reason : Blood Pressure : / mmHG Vent. Rate : 070 BPM Atrial Rate : 070 BPM P-R Int : 164 ms QRS Dur : 100 ms QT Int : 380 ms P-R-T Axes : 045 002 022 degrees QTc Int : 410 ms NORMAL SINUS RHYTHM NORMAL ECG WHEN COMPARED WITH ECG OF 09-OCT-2017 17:17, NO SIGNIFICANT CHANGE WAS FOUND Confirmed by MATIAS PERDOMO MD ([id number]) on 02/23/2018 11:34:44 AM Referred By: OLINDA MORRIS Confirmed By:MATIAS PERDOMO MD
[2018-02-23] MEDS ORDERED: FLU VACCINE QUAD 60 MCG/0.5 ML (MDV 18-19) IM ONE (12:00)
--- NOTE | 2018-02-23 15:56 | PN ---
[facility] CIWA - CIWA Score Nausea/Vomitin Muscle Tremors: 4-Moderate,w/Arms Extend Anxiety: 4-Mod. Anxious/Guarded Agitation: 4-Moderately Restless Paroxysmal Sweats: 3 Orientation: 0-Oriented Tacttile Disturbances: 0-None Auditory Disturbances: 0-None Visual Disturbances: 0-None Headache: 0-None Present CIWA-Ar Total Score: 18 S COWS - Scale Resting Pulse: 0= [place] 80 or Below Sweatin= Chills/Flushing Restless Observation: 3= Extraneous Movement Pupil Size: 0= Normal to Room Light Bone or Joint Aches: 2= Severe Diffuse Aches Runny Nose/ Eye Tearin= Runny Nose/Eyes GI Upset > 30mins: 2= Nausea/Diarrhea Tremor Observation of Outstretched Hands: 2= Slight Tremor Visible Yawning Observation: 1= 1-2x During Session Anxiety or Irritability: 2=Irritable/Anxious Goose Flesh Skin: 0=Smooth Skin COWS Score: 15 [facility] Progress Note (SOAP) Subjective: Body ache, interrupted sleep Objective: 02/23/18 15:55 Last Vital Signs Temp Pulse Resp BP Pulse Ox 97.4 F L 79 18 150/67 02/23/18 13:59 02/23/18 13:59 02/23/18 13:59 02/23/18 13:59 Laboratory Tests 02/23/18 02/23/18 02/23/18 07:44 07:44 07:44 WBC 5.7 RBC 4.14 Hgb 13.6 Hct 38.6 MCV 93.1 MCH 32.9 MCHC 35.3 RDW 13.3 Plt Count 156 MPV 9.3 Sodium 141 Potassium 4.1 Chloride 104 Carbon Dioxide 29 Anion Gap 7 L BUN 12 Creatinine 1.2 Creat Clearance w eGFR > 60 Random Glucose 106 Calcium 7.9 L Total Bilirubin 0.3 AST 13 L ALT 14 Alkaline Phosphatase 58 Total Protein 5.9 L Albumin 3.0 L RPR Titer Nonreactive Labs reviewed Assessment: 02/23/18 15:55 Withdrawal symptoms Plan: Continue detox Encouraged PO water intake
[2018-02-23] MEDS: THIAMINE HCL 100 MG TABLET (FP) PO SCH (22:20)
[2018-02-24] MEDS: chlordiazePOXIDE HCL 25 MG CAPSULE PO SCH ×3 (05:20→17:50)
[2018-02-24] MEDS: MENTHOL/PHENOL 1 EACH UD MM PRN (05:21)
[2018-02-24] MEDS: METHADONE HCL 5 MG TABLET (FOR DETOX USE ONLY) PO SCH (10:26)
[2018-02-24] MEDS: PRENATAL VITAMINS W/ FOLIC ACID TABLET (FP) PO SCH (10:26)
[2018-02-24] MEDS: NICOTINE 21 MG/24 HOURS TOPICAL PATCH TD SCH (10:28)
--- NOTE | 2018-02-24 13:55 | PN ---
S CIWA - CIWA Score Nausea/Vomitin Muscle Tremors: 3 Anxiety: 1-Mildly Anxious Agitation: 1-Slight > Activity Paroxysmal Sweats: 3 Orientation: 0-Oriented Tacttile Disturbances: 0-None Auditory Disturbances: 0-None Visual Disturbances: 0-None Headache: 0-None Present CIWA-Ar Total Score: 10 BHS COWS - Scale Resting Pulse: 0= MA 80 or Below Sweatin=Flushed/Facial Moisture Restless Observation: 0= Sits Still Pupil Size: 0= Normal to Room Light Bone or Joint Aches: 1= Mild Discomfort Runny Nose/ Eye Tearin= Nasal Congestion GI Upset > 30mins: 1= Stomach Cramp Tremor Observation of Outstretched Hands: 2= Slight Tremor Visible Yawning Observation: 1= 1-2x During Session Anxiety or Irritability: 1=Feels Anxious/Irritable Goose Flesh Skin: 0=Smooth Skin COWS Score: 9 BHS Progress Note (SOAP) Subjective: sweats tremors Objective: 02/24/18 13:54 Sleeping, arousable to verbal stimuli in no distress Vital Signs Temperature 98.4 F 02/24/18 13:17 Pulse Rate 78 02/24/18 13:17 Respiratory Rate 18 02/24/18 13:17 Blood Pressure 110/70 02/24/18 13:17 O2 Sat by Pulse Oximetry (%) Laboratory Last Values WBC 5.7 K/mm3 (4.0-10.0) 02/23/18 07:44 RBC 4.14 M/mm3 (4.00-5.60) 02/23/18 07:44 Hgb 13.6 GM/dL (11.7-16.9) 02/23/18 07:44 Hct 38.6 % (35.4-49) 02/23/18 07:44 MCV 93.1 fl (80-96) 02/23/18 07:44 MCH 32.9 pg (25.7-33.7) 02/23/18 07:44 MCHC 35.3 g/dl (32.0-35.9) 02/23/18 07:44 RDW 13.3 % (11.9-15.9) 02/23/18 07:44 Plt Count 156 K/MM3 (134-434) 02/23/18 07:44 MPV 9.3 fl (7.5-11.1) 02/23/18 07:44 Sodium 141 mmol/L (136-145) 02/23/18 07:44 Potassium 4.1 mmol/L (3.5-5.1) 02/23/18 07:44 Chloride 104 mmol/L (98-107) 02/23/18 07:44 Carbon Dioxide 29 mmol/L (21-32) 02/23/18 07:44 Anion Gap 7 MMOL/L (8-16) L 02/23/18 07:44 BUN 12 mg/dL (7-18) 02/23/18 07:44 Creatinine 1.2 mg/dL (0.55-1.3) 02/23/18 07:44 Creat Clearance w eGFR > 60 (>60) 02/23/18 07:44 Random Glucose 106 mg/dL (74-106) 02/23/18 07:44 Calcium 7.9 mg/dL (8.5-10.1) L 02/23/18 07:44 Total Bilirubin 0.3 mg/dL (0.2-1) 02/23/18 07:44 AST 13 U/L (15-37) L 02/23/18 07:44 ALT 14 U/L (13-61) 02/23/18 07:44 Alkaline Phosphatase 58 U/L (45-117) 02/23/18 07:44 Total Protein 5.9 g/dl (6.4-8.2) L 02/23/18 07:44 Albumin 3.0 g/dl (3.4-5.0) L 02/23/18 07:44 RPR Titer Nonreactive (NONREACTIVE) 02/23/18 07:44 UA still pending Assessment: 02/24/18 13:56 withdrawal symptoms Plan: Continue detox UA Continue hydration
[2018-02-24] MEDS: chlordiazePOXIDE 5 MG CAPSULE PO SCH (22:14)
[2018-02-24] MEDS: THIAMINE HCL 100 MG TABLET (FP) PO SCH (22:14)
[2018-02-25] MEDS: chlordiazePOXIDE 5 MG CAPSULE PO SCH ×3 (05:38→17:36)
[2018-02-25] MEDS: METHADONE HCL 5 MG TABLET (FOR DETOX USE ONLY) PO SCH (10:20)
[2018-02-25] MEDS: PRENATAL VITAMINS W/ FOLIC ACID TABLET (FP) PO SCH (10:20)
[2018-02-25] MEDS: NICOTINE 21 MG/24 HOURS TOPICAL PATCH TD SCH (10:20)
--- NOTE | 2018-02-25 12:03 | PN ---
BHS Progress Note Note: PATIENT CONTINUES WITH DETOX REGIMEN. C/O INTERRUPTED SLEEP. Vital Signs Temperature 97.5 F L 02/25/18 09:29 Pulse Rate 79 02/25/18 09:29 Respiratory Rate 20 02/25/18 09:29 Blood Pressure 119/64 02/25/18 09:29 O2 Sat by Pulse Oximetry (%) Laboratory Tests 02/23/18 02/23/18 02/23/18 07:44 07:44 07:44 WBC 5.7 RBC 4.14 Hgb 13.6 Hct 38.6 MCV 93.1 MCH 32.9 MCHC 35.3 RDW 13.3 Plt Count 156 MPV 9.3 Sodium 141 Potassium 4.1 Chloride 104 Carbon Dioxide 29 Anion Gap 7 L BUN 12 Creatinine 1.2 Creat Clearance w eGFR > 60 Random Glucose 106 Calcium 7.9 L Total Bilirubin 0.3 AST 13 L ALT 14 Alkaline Phosphatase 58 Total Protein 5.9 L Albumin 3.0 L RPR Titer Nonreactive PE: SKIN WARM AND DRY CAR S1S2 RESP CTA BL EXT FULL ROM, NO EDEMA ALERT AND ORIENTED X 3 A/P WITHDRAWAL SX CONTINUE DETOX ENCOURAGE ORAL FLUIDS CONTINUE TO MONITOR CLINICALLY
[2018-02-25] MEDS: chlordiazePOXIDE HCL 10 MG CAPSULE PO SCH (22:40)
[2018-02-25] MEDS: THIAMINE HCL 100 MG TABLET (FP) PO SCH (22:40)
[2018-02-26] MEDS: chlordiazePOXIDE HCL 10 MG CAPSULE PO SCH ×3 (05:49→16:51)
[2018-02-26] MEDS ORDERED: METHADONE HCL 10 MG TABLET (FOR DETOX USE ONLY) PO SCH (10:00)
[2018-02-26] MEDS: NICOTINE 21 MG/24 HOURS TOPICAL PATCH TD SCH (10:30)
[2018-02-26] MEDS: PRENATAL VITAMINS W/ FOLIC ACID TABLET (FP) PO SCH (10:30)
--- NOTE | 2018-02-26 11:31 | PN ---
S Progress Note Note: PATIENT TOLERATING DETOX REGIMEN WELL. C/O MILD SWEATS AT TIMES. REPORTS SLEEPING WELL. Vital Signs Temperature 97.8 F 02/26/18 10:00 Pulse Rate 77 02/26/18 10:00 Respiratory Rate 20 02/26/18 10:00 Blood Pressure 118/74 02/26/18 10:00 O2 Sat by Pulse Oximetry (%) Laboratory Tests 02/23/18 02/23/18 02/23/18 07:44 07:44 07:44 WBC 5.7 RBC 4.14 Hgb 13.6 Hct 38.6 MCV 93.1 MCH 32.9 MCHC 35.3 RDW 13.3 Plt Count 156 MPV 9.3 Sodium 141 Potassium 4.1 Chloride 104 Carbon Dioxide 29 Anion Gap 7 L BUN 12 Creatinine 1.2 Creat Clearance w eGFR > 60 Random Glucose 106 Calcium 7.9 L Total Bilirubin 0.3 AST 13 L ALT 14 Alkaline Phosphatase 58 Total Protein 5.9 L Albumin 3.0 L RPR Titer Nonreactive PE: SKIN WARM AND DRY CAR S1S2 RESP CTA BL EXT FULL ROM, AMB AD ALEKSANDAR ALERT AND ORIENTED X 3 A/P WITHDRAWAL SX CONTINUE DETOX REGIMEN ENCOURAGE ORAL FLUIDS CONTINUE TO MONITOR
--- NOTE | 2018-02-26 13:58 | DS ---
[facility] Detox Discharge Summary Admission Date: 02/22/18 Discharge Date: 02/26/18 - History Present History: Alcohol Dependence, Opioid Dependence - Physical Exam Results Vital Signs: Vital Signs Temperature 97.8 F 02/26/18 10:00 Pulse Rate 77 02/26/18 10:00 Respiratory Rate 20 02/26/18 10:00 Blood Pressure 118/74 02/26/18 10:00 O2 Sat by Pulse Oximetry (%) - Treatment Hospital Course: Detox Protocol Followed, Detoxed Safely, Responded well, Discharged Condition Good, Rehab Referral Accepted Patient has Accepted a Rehab Referral to: [facility] at [facility] - Medication Discharge Medications: Ambulatory Orders NK [No Known Home Medication] 10/09/17 - Diagnosis (1) Alcohol dependence with uncomplicated withdrawal Current Visit: Yes Status: Resolved (2) Opioid dependence with withdrawal Current Visit: Yes Status: Resolved - AMA Did Patient Leave Against Medical Advice: No
[2018-02-26 17:52] VITALS: BP 134/70; PULSE 88; TEMP 97.4
[2018-02-26 21:26] LABS: URINE APPEARANCE CLEAR; URINE BILIRUBIN NEGATIVE (<2.0 mg/dL); URINE COLOR LTYELLOW; URINE GLUCOSE (UA) NEGATIVE (NEGATIVE); URINE KETONE NEGATIVE (NEGATIVE); URINE LEUK ESTERASE NEGATIVE (NEGATIVE); URINE NITRITE NEGATIVE (NEGATIVE); URINE PROTEIN NEGATIVE (NEGATIVE); URINE UROBILINOGEN NEGATIVE mg/dL (0.2-1.0)
[2018-02-27] MEDS ORDERED: METHADONE HCL 5 MG TABLET (FOR DETOX USE ONLY) PO SCH (06:00)
== END 2018-02-26 18:27 | disposition home or self-care (01) | DRG 773 ==
LOC: YASAS 16:57 → Y3N 20:29
PROC: HZ2ZZZZ Detoxification Services for Substance Abuse Treatment (ICD-10-PCS; principal; 2018-02-22)
DX: F11.23 Opioid dependence with withdrawal (principal); F10.230 Alcohol dependence with withdrawal, uncomplicated; F14.20 Cocaine dependence, uncomplicated; F12.10 Cannabis abuse, uncomplicated; F17.210 Nicotine dependence, cigarettes, uncomplicated; E66.9 Obesity, unspecified; Z68.35 Body mass index [BMI] 35.0-35.9, adult
CPT/HCPCS: 36415; 80053; 81003; 85027; 86593; 93005; 93010

== ENCOUNTER 2018-02-26 18:56 | Inpatient (IN) | payer OTHER ==
[2018-02-26 19:49] VITALS: BMI 35.0
[2018-02-26] MEDS ORDERED: MENTHOL/PHENOL 1 EACH UD MM PRN (20:55)
[2018-02-26] MEDS ORDERED: IBUPROFEN 400 MG TABLET (FP) PO PRN (20:55)
[2018-02-26] MEDS ORDERED: MAG HYDROX/AL HYDROX/SIMETH 30 ML UNIT-DOSE CUP PO PRN (20:55)
[2018-02-26] MEDS ORDERED: LOPERAMIDE HCL 2 MG CAPSULE PO PRN (20:55)
[2018-02-26] MEDS ORDERED: P-EPHED 60MG/TRIPROLIDI 2.5MG TABLET PO PRN (20:55)
[2018-02-26] MEDS ORDERED: guaiFENesin/D-METHORPHAN HB 10 ML UNIT-DOSE CUPS PO PRN (20:55)
[2018-02-26] MEDS ORDERED: ACETAMINOPHEN 325 MG TABLET (FP) PO PRN (20:55)
[2018-02-26] MEDS ORDERED: MAGNESIUM CITRATE 300 ML BOTTLE PO PRN (20:55)
[2018-02-26] MEDS ORDERED: hydrOXYzine PAMOATE 50 MG CAPSULE (FP) PO PRN (20:55)
[2018-02-26] MEDS ORDERED: NICOTINE POLACRILEX 2 MG GUM BUC PRN (20:55)
[2018-02-26] MEDS ORDERED: MAGNESIUM HYDROX 2400MG/30ML ORAL SUSPENSION 30 ML CUP PO PRN (20:55)
--- NOTE | 2018-02-26 20:57 | HP ---
PURNIMA PEREZ Rehab Assess/Revision - Admission History Admitted to Rehab from: [facility] [place] Date of Admission to Rehab: 02/26/18 - Vital signs Vital Signs: Vital Signs Period Temp Pulse Resp BP Sys/Castellanos Pulse Ox Last 24 Hr 99.0 F 74 18 118/74 - Findings Detox History & Physical reviewed: Yes Concur with findings: Yes Inpatient Rehab Admission - Initial Determination Are CD services needed?: Yes Free of communicable disease: Yes Not in need of hospitalization: Yes - Rehab Admission Criteria Previous failed treatment: Yes Poor recovery environment: Yes Comorbidities: Yes Lacks judgement: Yes Patient is meeting Inpatient Rehab admission criteria:: Yes
[2018-02-26] MEDS: THIAMINE HCL 100 MG TABLET (FP) PO SCH (21:20)
[2018-02-26] MEDS: MELATONIN 5 MG TABLETS PO PRN (21:20)
--- NOTE | 2018-02-27 09:59 | HP ---
Psychiatrist Admission - Data Date of interview: 02/27/18 Admission source: [facility] Identifying data: Patient is a 52 year old single male, without children, unemployed (denies receiving financial assistance), and is currently homeless. This is one of multiple admissions for patient at [facility]. Patient admitted to rehab for alcohol, cocaine, opiate dependence. Medical History: unremarkable Psychiatric History: Patient denies h/o psychiatric hospitalization, outpatient care, and suicide attempt. Physical/Sexual Abuse/Trauma History: denies. Vital Signs: Vital Signs - 24 hr 02/26/18 02/26/18 02/27/18 18:40 19:47 00:30 Temperature 99.0 F 99.0 F Pulse Rate 78 74 Respiratory 18 18 18 Rate Blood Pressure 118/74 118/74 02/27/18 02/27/18 03:30 06:51 Temperature 98.7 F Pulse Rate 71 Respiratory 18 18 Rate Blood Pressure 101/70 Allergies/Adverse Reactions: Allergies Allergy/AdvReac Type Severity Reaction Status Date / Time No Known Allergies Allergy Verified 02/26/18 19:28 Date of last physical exam: 02/22/18 Concur with the findings of this exam: Yes - Substance Abuse/Tx History Hx Alcohol Use: Yes (2-4 16 ounce cans daily) Hx Substance Use: Yes (cocaine and heroin varies daily) Hx Substance Use Treatment: Yes ([facility] 2017) Mental Status Exam - Mental Status Exam Alert and Oriented to: Time, Place, Person Cognitive Function: Good Patient Appearance: Well Groomed Mood: Euthymic Affect: Mood Congruent Patient Behavior: Appropriate, Cooperative Speech Pattern: Clear, Appropriate Voice Loudness: Normal Thought Process: Intact, Goal Oriented Thought Disorder: Not Present Hallucinations: Denies Suicidal Ideation: Denies Homicidal Ideation: Denies Insight/Judgement: Poor Sleep: Fair Appetite: Fair Muscle strength/Tone: Normal Gait/Station: Normal Psychiatric Findings - Problem List ([place] 1, 2,3) (1) Alcohol dependence Current Visit: Yes Status: Acute (2) Cocaine dependence Current Visit: Yes Status: Acute (3) Opioid dependence Current Visit: Yes Status: Acute (4) Nicotine dependence Current Visit: No Status: Chronic Qualifiers: Nicotine product type: cigarettes Substance use status: uncomplicated Qualified Code(s): F17.210 - Nicotine dependence, cigarettes, uncomplicated - Initial Treatment Plan Initial Treatment Plan: Psychoeducation provided. Detoxification in progress. Observation.
[2018-02-27] MEDS: NICOTINE 14 MG/24 HOURS TOPICAL PATCH TD SCH (10:18)
[2018-02-27] MEDS: PRENATAL VITAMINS W/ FOLIC ACID TABLET (FP) PO SCH (10:18)
[2018-02-27] MEDS ORDERED: PNEUMOC 13-VAL CONJ-DIP CRM/PF 0.5 ML DISP.SYRIN IM ONE (11:21)
[2018-02-27] MEDS ORDERED: FLU VACCINE QUAD 60 MCG/0.5 ML (MDV 18-19) IM ONE (12:00)
[2018-02-27] MEDS ORDERED: PNEUMOCOCCAL 23 VACCINE 0.5 ML VIAL IM ONE (12:00)
[2018-02-27] MEDS: MELATONIN 5 MG TABLETS PO PRN (21:31)
[2018-02-27] MEDS: THIAMINE HCL 100 MG TABLET (FP) PO SCH (21:31)
[2018-02-28 06:55] VITALS: BP 118/72; PULSE 72; TEMP 98.4
[2018-02-28] MEDS: NICOTINE 14 MG/24 HOURS TOPICAL PATCH TD SCH (09:59)
[2018-02-28] MEDS: PRENATAL VITAMINS W/ FOLIC ACID TABLET (FP) PO SCH (09:59)
--- NOTE | 2018-02-28 13:00 | PN ---
S Progress Note Note: Pt is being administratively discharged because of disrespectful behavior towards staff and refusal to follow unit rules and regulations around telephone use- d/w neonatal intensive care unit nurse
== END 2018-02-28 13:25 | disposition home or self-care (01) | DRG 772 ==
LOC: YASAS 18:56 → Y5N 18:57
PROVIDERS: ADMIT Psychiatry & Neurology Psychiatry; ATTEND Psychiatry & Neurology Psychiatry
PROC: HZ42ZZZ Group Counseling for Substance Abuse Treatment, Cognitive-Behavioral (ICD-10-PCS; principal; 2018-02-26)
DX: F11.20 Opioid dependence, uncomplicated (principal); F10.20 Alcohol dependence, uncomplicated; F14.20 Cocaine dependence, uncomplicated; F17.210 Nicotine dependence, cigarettes, uncomplicated
CPT/HCPCS: 36415; 87389; 90688; 90732; G0008; G0009

== ENCOUNTER 2021-03-22 14:11 | Inpatient (IN) | payer BC ==
[2021-03-22 15:21] VITALS: BMI 37.9
[2021-03-22] MEDS ORDERED: MENTHOL/PHENOL 1 EACH UD MM PRN (15:23)
[2021-03-22] MEDS ORDERED: MAGNESIUM CITRATE 300 ML BOTTLE PO PRN (15:23)
[2021-03-22] MEDS ORDERED: BISMUTH SUBSALICYLATE 524 MG/30 ML PO PRN (15:23)
[2021-03-22] MEDS ORDERED: ACETAMINOPHEN 325 MG TABLET (FP) PO PRN ×2 (15:23)
[2021-03-22] MEDS ORDERED: MAG HYDROX/AL HYDROX/SIMETH 30 ML UNIT-DOSE CUP PO PRN (15:23)
[2021-03-22] MEDS ORDERED: ONDANSETRON *ODT* 4 MG TABLET SL PRN (15:23)
[2021-03-22] MEDS ORDERED: NICOTINE 10 MG CARTRIDGE (INHALER) IH PRN (15:23)
[2021-03-22] MEDS ORDERED: IBUPROFEN 400 MG TABLET (FP) PO PRN (15:23)
[2021-03-22] MEDS ORDERED: MAGNESIUM HYDROX 2400MG/30ML ORAL SUSPENSION 30 ML CUP PO PRN (15:23)
[2021-03-22] MEDS: hydrOXYzine PAMOATE 25 MG CAPSULE (FP) PO SCH ×2 (18:06→22:20)
[2021-03-22] MEDS: PRENATAL VITAMINS W/ FOLIC ACID TABLET (FP) PO SCH (18:06)
[2021-03-22] MEDS: METHOCARBAMOL 500 MG TABLET PO PRN (22:20)
[2021-03-22] MEDS: THIAMINE HCL 100 MG TABLET (FP) PO SCH (22:20)
[2021-03-22] MEDS: ATORVASTATIN CA 10 MG TABLET (FP) PO SCH (22:20)
[2021-03-22] MEDS: MELATONIN 5 MG TABLETS PO SCH (22:21)
[2021-03-23] MEDS: hydrOXYzine PAMOATE 25 MG CAPSULE (FP) PO SCH ×5 (05:42→22:35)
[2021-03-23] MEDS: PRENATAL VITAMINS W/ FOLIC ACID TABLET (FP) PO SCH (10:39)
[2021-03-23] MEDS: METHOCARBAMOL 500 MG TABLET PO PRN (10:40)
[2021-03-23] MEDS: chlordiazePOXIDE HCL 25 MG CAPSULE PO SCH ×3 (11:56→22:34)
[2021-03-23] MEDS ORDERED: chlordiazePOXIDE HCL 10 MG CAPSULE PO PRN (13:00)
[2021-03-23] MEDS ORDERED: FLU VACC QS2021-22(6MOS UP)/PF 60 MCG/0.5 ML SYRINGE IM ONE (13:00)
[2021-03-23 14:46] LABS: HEMATOCRIT 38.8 % (35.4-49); MCH 31.2 pg (25.7-33.7); MCHC 33.4 g/dl (32.0-35.9); MEAN CELL VOLUME 93.5 fl (80-96); MEAN PLT VOLUME 8.9 fl (7.5-11.1); PLATELET COUNT 162 10^3/uL (134-434); RBC 4.15 M/mm3 (4.00-5.60); RDW 13.7 % (11.9-15.9); WHITE BLOOD COUNT 5.6 K/mm3 (4.0-10.0)
[2021-03-23 14:59] LABS: CALCIUM 9.1 mg/dL (8.5-10.1)
[2021-03-23 15:00] LABS: ALBUMIN 2.8 g/dl (3.4-5.0); BLOOD UREA NITROGEN 11.1 mg/dL (7-18)
[2021-03-23 15:03] LABS: CREATININE 1.1 mg/dL (0.55-1.3)
[2021-03-23 15:05] LABS: BILIRUBIN,TOTAL 0.5 mg/dL (0.2-1); TOT PROT 5.9 g/dl (6.4-8.2)
[2021-03-23 15:38] LABS: HIV INTERPRETATION NEGATIVE (NEGATIVE)
[2021-03-23] MEDS: THIAMINE HCL 100 MG TABLET (FP) PO SCH (22:34)
[2021-03-23] MEDS: ATORVASTATIN CA 10 MG TABLET (FP) PO SCH (22:34)
[2021-03-23] MEDS: MELATONIN 5 MG TABLETS PO SCH (22:35)
[2021-03-24] MEDS: chlordiazePOXIDE HCL 25 MG CAPSULE PO SCH (05:22)
[2021-03-24] MEDS: hydrOXYzine PAMOATE 25 MG CAPSULE (FP) PO SCH ×5 (05:23→23:30)
[2021-03-24] MEDS: PRENATAL VITAMINS W/ FOLIC ACID TABLET (FP) PO SCH (10:18)
[2021-03-24] MEDS: chlordiazePOXIDE HCL 10 MG CAPSULE PO SCH ×3 (10:20→23:29)
[2021-03-24] MEDS: MELATONIN 5 MG TABLETS PO SCH (23:30)
[2021-03-24] MEDS: ATORVASTATIN CA 10 MG TABLET (FP) PO SCH (23:30)
[2021-03-24] MEDS: THIAMINE HCL 100 MG TABLET (FP) PO SCH (23:30)
[2021-03-25] MEDS: chlordiazePOXIDE HCL 10 MG CAPSULE PO SCH ×2 (05:25→18:04)
[2021-03-25] MEDS: hydrOXYzine PAMOATE 25 MG CAPSULE (FP) PO SCH ×5 (05:25→22:45)
[2021-03-25] MEDS: METHOCARBAMOL 500 MG TABLET PO PRN (10:28)
[2021-03-25] MEDS: PRENATAL VITAMINS W/ FOLIC ACID TABLET (FP) PO SCH (10:28)
[2021-03-25] MEDS: ATORVASTATIN CA 10 MG TABLET (FP) PO SCH (22:45)
[2021-03-25] MEDS: MELATONIN 5 MG TABLETS PO SCH (22:45)
[2021-03-25] MEDS: THIAMINE HCL 100 MG TABLET (FP) PO SCH (22:45)
[2021-03-26] MEDS: hydrOXYzine PAMOATE 25 MG CAPSULE (FP) PO SCH ×5 (06:14→22:18)
[2021-03-26] MEDS: chlordiazePOXIDE HCL 10 MG CAPSULE PO SCH ×2 (06:14→17:32)
[2021-03-26] MEDS: PRENATAL VITAMINS W/ FOLIC ACID TABLET (FP) PO SCH (10:41)
[2021-03-26] MEDS: METHOCARBAMOL 500 MG TABLET PO PRN (10:42)
[2021-03-26] MEDS: ATORVASTATIN CA 10 MG TABLET (FP) PO SCH (22:18)
[2021-03-26] MEDS: THIAMINE HCL 100 MG TABLET (FP) PO SCH (22:18)
[2021-03-26] MEDS: MELATONIN 5 MG TABLETS PO SCH (22:18)
[2021-03-27] MEDS ORDERED: chlordiazePOXIDE HCL 10 MG CAPSULE PO ONE (05:00)
[2021-03-27] MEDS: hydrOXYzine PAMOATE 25 MG CAPSULE (FP) PO SCH ×2 (05:23→10:39)
[2021-03-27 07:15] VITALS: PULSE 74
[2021-03-27 09:14] VITALS: BP 137/72; TEMP 97.4
[2021-03-27] MEDS: PRENATAL VITAMINS W/ FOLIC ACID TABLET (FP) PO SCH (10:39)
== END 2021-03-27 10:23 | disposition home or self-care (01) | DRG 774 ==
LOC: YASAS 14:11 → Y6N 15:36
PROVIDERS: ADMIT Allergy & Immunology; ATTEND Allergy & Immunology
PROC: HZ2ZZZZ Detoxification Services for Substance Abuse Treatment (ICD-10-PCS; principal; 2021-03-22)
DX: F10.230 Alcohol dependence with withdrawal, uncomplicated (principal); F14.20 Cocaine dependence, uncomplicated; F12.10 Cannabis abuse, uncomplicated; F17.213 Nicotine dependence, cigarettes, with withdrawal; E78.1 Pure hyperglyceridemia; R29.898 Other symptoms and signs involving the musculoskeletal system
CPT/HCPCS: 36415; 80053; 85027; 86780; 87389; 90686; C9803; G0008; U0003; U0005

== ENCOUNTER 2024-02-03 09:43 | Inpatient (IN) | payer BC ==
[2024-02-03] MEDS ORDERED: DICYCLOMINE HCL 10 MG CAPSULE PO PRN (10:44)
[2024-02-03] MEDS ORDERED: POLYETHYLENE GLYCOL (HEALTHYLAX) 3350 17 GM PACKET PO PRN (10:44)
[2024-02-03] MEDS ORDERED: LOPERAMIDE HCL 2 MG CAPSULE PO PRN (10:44)
[2024-02-03] MEDS ORDERED: hydrOXYzine PAMOATE 25 MG CAPSULE (FP) PO PRN (10:44)
[2024-02-03] MEDS ORDERED: BENZONATATE 200 MG CAPSULE PO PRN (10:44)
[2024-02-03] MEDS ORDERED: NALOXONE (NARCAN) HCL 4 MG/0.1 ML SPRAY NS PRN (10:44)
[2024-02-03] MEDS ORDERED: ONDANSETRON *ODT* 4 MG TABLET SL PRN (10:44)
[2024-02-03] MEDS ORDERED: IBUPROFEN 400 MG TABLET (FP) PO PRN (10:44)
[2024-02-03] MEDS ORDERED: MAG HYDROX/AL HYDROX/SIMETH 30 ML UNIT-DOSE CUP PO PRN (10:44)
[2024-02-03] MEDS ORDERED: BENZOCAINE/MENTHOL (CHLORASEPTIC ) LOZENGE MM PRN (10:44)
[2024-02-03] MEDS ORDERED: NALOXONE (NYS OPIOID OVERDOSE PROGRAM) 4 MG/0.1 ML SPRAY NS PRN (10:44)
[2024-02-03] MEDS ORDERED: BUPRENORPHINE HCL 150 MCG, BUPRENORPHINE HCL 75 MCG BC PRN (10:44)
[2024-02-03] MEDS ORDERED: guaiFENesin 600 MG TABLET.ER (FP) PO PRN (10:44)
[2024-02-03] MEDS ORDERED: ACETAMINOPHEN 325 MG TABLET (FP) PO PRN (10:44)
[2024-02-03] MEDS ORDERED: diazePAM 5 MG TABLET PO PRN (10:44)
[2024-02-03] MEDS ORDERED: chlordiazePOXIDE HCL 25 MG CAPSULE PO PRN (10:44)
[2024-02-03] MEDS ORDERED: BISMUTH SUBSALICYLATE 524 MG/30 ML PO PRN (10:44)
[2024-02-03] MEDS ORDERED: IBUPROFEN 600 MG TABLET (FP) PO PRN (10:44)
[2024-02-03 11:22] VITALS: BMI 34.4
[2024-02-03] MEDS ORDERED: BUPRENORPHINE HCL 150 MCG FILM BC ONE (11:30)
[2024-02-03] MEDS ORDERED: BUPRENORPHINE HCL 75 MCG FILM BC ONE (11:30)
[2024-02-03] MEDS ORDERED: amLODIPine BESYLATE 5 MG TABLET (FP) ONE (11:32)
[2024-02-03] MEDS ORDERED: cloNIDine HCL 0.1 MG TABLET ONE (11:32)
[2024-02-03] MEDS: BUPRENORPHINE HCL 150 MCG, BUPRENORPHINE HCL 75 MCG BC ONE (11:40)
[2024-02-03] MEDS: cloNIDine HCL 0.1 MG TABLET PO ONE (11:42)
[2024-02-03] MEDS: amLODIPine BESYLATE 5 MG TABLET (FP) PO SCH (11:43)
[2024-02-03] MEDS ORDERED: cloNIDine HCL 0.1 MG TABLET PO PRN (14:44)
[2024-02-03] MEDS: THIAMINE 100 MG TABLET PO SCH (22:24)
[2024-02-03] MEDS: ATORVASTATIN CA 10 MG TABLET (FP) PO SCH (22:24)
[2024-02-03] MEDS: MELATONIN 5 MG TABLETS PO SCH (22:27)
[2024-02-03] MEDS: chlordiazePOXIDE HCL 25 MG CAPSULE PO SCH (22:28)
[2024-02-04] MEDS ORDERED: BUPRENORPHINE HCL 150 MCG, BUPRENORPHINE HCL 75 MCG BC PRN
[2024-02-04] MEDS: BUPRENORPHINE HCL 150 MCG, BUPRENORPHINE HCL 75 MCG BC SCH (07:00)
[2024-02-04] MEDS: PRENATAL VITAMINS W/ FOLIC ACID TABLET (FP) PO SCH (10:23)
[2024-02-04 12:39] LABS: HEMATOCRIT 41.9 % (35.4-49); HEMOGLOBIN 13.7 GM/dL (11.7-16.9); MCH 30.6 pg (25.7-33.7); MCHC 32.7 g/dl (32.0-35.9); MEAN CELL VOLUME 93.6 fl (80-96); MEAN PLT VOLUME 8.6 fl (7.5-11.1); PLATELET COUNT 200 10^3/uL (134-434); RBC 4.47 M/mm3 (4.00-5.60); RDW 14.3 % (11.9-15.9); WHITE BLOOD COUNT 6.1 K/mm3 (4.0-10.0)
[2024-02-04 13:08] LABS: POTASSIUM 4.4 mmol/L (3.5-5.1)
[2024-02-04 13:11] LABS: ALBUMIN 3.3 g/dl (3.4-5.0); BLOOD UREA NITROGEN 13.9 mg/dL (7-18); CALCIUM 9.1 mg/dL (8.5-10.1)
[2024-02-04 13:14] LABS: CREATININE 0.9 mg/dL (0.55-1.3)
[2024-02-04 13:15] LABS: TOT PROT 6.4 g/dl (6.4-8.2)
[2024-02-04 13:21] LABS: BILIRUBIN,TOTAL 0.7 mg/dL (0.2-1)
[2024-02-04] MEDS: MAGNESIUM HYDROX 2400MG/30ML ORAL SUSPENSION 30 ML CUP PO PRN (21:31)
[2024-02-05] MEDS: BUPRENORPHINE HCL 450 MCG FILM BC SCH (06:19)
[2024-02-05] MEDS: chlordiazePOXIDE HCL 25 MG CAPSULE PO SCH (06:19)
[2024-02-05] MEDS ORDERED: diazePAM 5 MG TABLET PO PRN (10:30)
[2024-02-05] MEDS: diazePAM 5 MG TABLET PO SCH (10:40)
[2024-02-05] MEDS: METHOCARBAMOL 500 MG TABLET PO PRN (22:16)
[2024-02-06] MEDS ORDERED: chlordiazePOXIDE HCL 10 MG CAPSULE PO PRN
[2024-02-06] MEDS ORDERED: chlordiazePOXIDE HCL 10 MG CAPSULE PO SCH (05:00)
[2024-02-06] MEDS: diazePAM 5 MG TABLET PO SCH (05:58)
[2024-02-06] MEDS: BUPRENORPHINE/NALOXONE 4 MG/1 MG FILM PACKET SL SCH (06:47)
[2024-02-06] MEDS: BENZOCAINE 20 % GEL TUBE MM PRN (18:45)
[2024-02-07] MEDS ORDERED: chlordiazePOXIDE HCL 10 MG CAPSULE PO SCH (05:00)
[2024-02-07] MEDS: BUPRENORPHINE/NALOXONE 8 MG/2 MG FILM PACKET SL ONE (05:55)
[2024-02-07] MEDS: diazePAM 5 MG TABLET PO SCH (09:40)
[2024-02-07 10:14] VITALS: BP 130/86; PULSE 74; RESP 18; TEMP 97.5
[2024-02-08] MEDS ORDERED: chlordiazePOXIDE HCL 10 MG CAPSULE PO ONE (05:00)
[2024-02-08] MEDS ORDERED: diazePAM 5 MG TABLET PO ONE (06:00)
== END 2024-02-07 09:41 | disposition home or self-care (01) | DRG 773 ==
LOC: YASAS 09:43 → Y3N 11:34
PROVIDERS: ADMIT Allergy & Immunology; ATTEND Surgery
PROC: HZ2ZZZZ Detoxification Services for Substance Abuse Treatment (ICD-10-PCS; principal; 2024-02-03)
DX: F11.23 Opioid dependence with withdrawal (principal); F10.230 Alcohol dependence with withdrawal, uncomplicated; F14.20 Cocaine dependence, uncomplicated; F12.20 Cannabis dependence, uncomplicated; F17.210 Nicotine dependence, cigarettes, uncomplicated; E78.5 Hyperlipidemia, unspecified; R76.8 Other specified abnormal immunological findings in serum; Z59.01 Sheltered homelessness
CPT/HCPCS: 36415; 80053; 80305; 80307; 85027; 86593; 86780; 93005; 93010

== ENCOUNTER 2024-07-06 09:53 | Inpatient (IN) | payer BC ==
[2024-07-06 10:10] VITALS: BMI 34.7
[2024-07-06] MEDS ORDERED: DICYCLOMINE HCL 10 MG CAPSULE PO PRN (10:54)
[2024-07-06] MEDS ORDERED: BENZONATATE 200 MG CAPSULE PO PRN (10:54)
[2024-07-06] MEDS ORDERED: MAG HYDROX/AL HYDROX/SIMETH 30 ML UNIT-DOSE CUP PO PRN (10:54)
[2024-07-06] MEDS ORDERED: diazePAM 5 MG TABLET PO PRN (10:54)
[2024-07-06] MEDS ORDERED: ONDANSETRON *ODT* 4 MG TABLET SL PRN (10:54)
[2024-07-06] MEDS ORDERED: IBUPROFEN 600 MG TABLET (FP) PO PRN (10:54)
[2024-07-06] MEDS ORDERED: NALOXONE (NARCAN) HCL 4 MG/0.1 ML SPRAY NS PRN (10:54)
[2024-07-06] MEDS ORDERED: hydrOXYzine PAMOATE 25 MG CAPSULE (FP) PO PRN (10:54)
[2024-07-06] MEDS ORDERED: LOPERAMIDE HCL 2 MG CAPSULE PO PRN (10:54)
[2024-07-06] MEDS ORDERED: guaiFENesin 600 MG TABLET.ER (FP) PO PRN (10:54)
[2024-07-06] MEDS ORDERED: ACETAMINOPHEN 325 MG TABLET (FP) PO PRN (10:54)
[2024-07-06] MEDS ORDERED: POLYETHYLENE GLYCOL (HEALTHYLAX) 3350 17 GM PACKET PO PRN (10:54)
[2024-07-06] MEDS ORDERED: BISMUTH SUBSALICYLATE 524 MG/30 ML PO PRN (10:54)
[2024-07-06] MEDS ORDERED: IBUPROFEN 400 MG TABLET (FP) PO PRN (10:54)
[2024-07-06] MEDS ORDERED: ALBUTEROL SO4 HFA INHALER IH PRN (13:08)
[2024-07-06] MEDS: diazePAM 5 MG TABLET PO SCH ×2 (18:41→18:44)
[2024-07-06] MEDS: NALTREXONE HCL 50 MG TABLET PO ONE (18:43)
[2024-07-06] MEDS: THIAMINE 100 MG TABLET PO SCH (22:51)
[2024-07-06] MEDS: ATORVASTATIN CA 20 MG TABLET (FP) PO SCH (22:51)
[2024-07-06] MEDS: MELATONIN 5 MG TABLETS PO SCH (22:51)
[2024-07-07] MEDS: PRENATAL VITAMINS W/ FOLIC ACID TABLET (FP) PO SCH (10:16)
[2024-07-07] MEDS: amLODIPine BESYLATE 5 MG TABLET (FP) PO SCH (10:16)
[2024-07-07] MEDS: NALTREXONE HCL 50 MG TABLET PO SCH (10:16)
[2024-07-07] MEDS: BENZOCAINE/MENTHOL (CHLORASEPTIC ) LOZENGE MM PRN (10:18)
[2024-07-07 11:37] LABS: POTASSIUM 4.1 mmol/L (3.5-5.1)
[2024-07-07 11:46] LABS: CALCIUM 9.1 mg/dL (8.5-10.1)
[2024-07-07 11:47] LABS: ALBUMIN 3.5 g/dl (3.4-5.0); BLOOD UREA NITROGEN 12.4 mg/dL (7-18)
[2024-07-07 11:50] LABS: CREATININE 1.1 mg/dL (0.55-1.3)
[2024-07-07 11:51] LABS: BILIRUBIN,TOTAL 0.4 mg/dL (0.2-1)
[2024-07-07 11:52] LABS: TOT PROT 6.8 g/dl (6.4-8.2)
[2024-07-07 12:13] LABS: HEMATOCRIT 40.3 % (35.4-49); HEMOGLOBIN 13.6 GM/dL (11.7-16.9); MCH 31.2 pg (25.7-33.7); MCHC 33.8 g/dl (32.0-35.9); MEAN CELL VOLUME 92.3 fl (80-96); MEAN PLT VOLUME 9.1 fl (7.5-11.1); PLATELET COUNT 191 10^3/uL (134-434); RBC 4.36 M/mm3 (4.00-5.60); RDW 14.3 % (11.9-15.9); WHITE BLOOD COUNT 5.1 K/mm3 (4.0-10.0)
[2024-07-07] MEDS: METHOCARBAMOL 500 MG TABLET PO PRN (22:12)
[2024-07-08] MEDS: diazePAM 5 MG TABLET PO SCH (05:36)
[2024-07-08] MEDS: PENICILLIN G BENZATHINE 2,400,000 UNIT/4 ML PFS IM ONE ×2 (11:52→12:19)
[2024-07-08 13:38] LABS: HIV INTERPRETATION NEGATIVE (NEGATIVE)
[2024-07-09] MEDS: diazePAM 5 MG TABLET PO SCH (05:44)
[2024-07-09] MEDS: MAGNESIUM HYDROX 2400MG/30ML ORAL SUSPENSION 30 ML CUP PO PRN (19:14)
[2024-07-10] MEDS: diazePAM 5 MG TABLET PO ONE (05:54)
[2024-07-10 09:12] VITALS: BP 124/79; PULSE 78; RESP 19; TEMP 98
== END 2024-07-10 09:33 | disposition home or self-care (01) | DRG 774 ==
LOC: YASAS 09:53 → Y3N 11:59
PROVIDERS: ADMIT Allergy & Immunology; ATTEND Allergy & Immunology
PROC: HZ2ZZZZ Detoxification Services for Substance Abuse Treatment (ICD-10-PCS; principal; 2024-07-06)
DX: F10.230 Alcohol dependence with withdrawal, uncomplicated (principal); F14.20 Cocaine dependence, uncomplicated; F17.210 Nicotine dependence, cigarettes, uncomplicated; E78.5 Hyperlipidemia, unspecified; I10 Essential (primary) hypertension; R76.8 Other specified abnormal immunological findings in serum; Z86.19 Personal history of other infectious and parasitic diseases
CPT/HCPCS: 36415; 80053; 80305; 80307; 83036; 85027; 86593; 86780; 87389; 93005; 93010